=== PATIENT | female | born 1945 | race Caucasian/White ===

== ENCOUNTER 2018-05-15 11:32 | Inpatient (IN) ==
[2018-05-15] MEDS ORDERED: PROTONIX IV ONE (12:25)
[2018-05-15] MEDS ORDERED: PEPCID IV ONE (12:25)
[2018-05-15] MEDS ORDERED: NS 1,000 ML IV ONE (12:25)
[2018-05-15] MEDS ORDERED: SODIUM CHLORIDE 0.9% INJ ONE ×2 (12:26)
[2018-05-15 13:27] LABS: BASO# 0.01 X1000 (0.0-0.2); BASO% 0.1 % (0.0-0.8); HEMOGLOBIN 12.9 g/dL (12.0-16.0); IMM GRAN# 0.02 X1000 (0.0-0.04); IMM GRAN% 0.2 % (0.0-0.5); LYMPH# 0.37 X1000 (1.2-3.4); LYMPH% 3.2 % (20.5-51.1); MCH 29.4 PG (27-31); MCHC 32.3 g/dL (33-37); MCV 91.1 FL (81-99); MONO# 0.69 X1000 (0.11-0.59); MPV 11.9 FL (7.4-10.4); NEUT# 10.38 X1000 (1.4-6.5); NEUT% 90.5 % (42.2-75.2); PLT 226 X1000 (130-400); RBC 4.39 XMIL (4.2-5.4); WBC 11.47 X1000 (4.8-10.8)
[2018-05-15 13:42] LABS: AGAP 21; BUN 27 mg/dL (8-22); CALCIUM 8.5 mg/dL (8.8-10.2); CHLORIDE 100 mmol/L (98-107); COSMO 279; CREATININE 0.8 mg/dL (0.5-0.9); ESTIMATED GFR > 60; GLUCOSE 73 mg/dL (70-104); POTASSIUM 4.1 mmol/L (3.5-5.1); SODIUM 138 mmol/L (136-145); TCO2 17 mmol/L (25-35)
--- NOTE | 2018-05-15 16:03 | EKG Report ---
Test Performed on : 05/15/2018 11:48:44 AM Test Reason : ED. No order in [place] Blood Pressure : / mmHG Vent. Rate : 140 BPM Atrial Rate : 150 BPM P-R Int : 000 ms QRS Dur : 086 ms QT Int : 318 ms P-R-T Axes : 000 -23 132 degrees QTc Int : 485 ms Atrial fibrillation. with rapid ventricular response. Inferior infarct , age undetermined Possible Anterior infarct (cited on or before 10-AUG-2017) ST & T wave abnormality, consider lateral ischemia Abnormal ECG When compared with ECG of 11-AUG-2017 06:54, Significant changes have occurred Unconfirmed Result
[2018-05-15] MEDS ORDERED: NS 500 ML IV ONE (16:19)
[2018-05-15] MEDS ORDERED: G.I. COCKTAIL PO ONE (16:20)
[2018-05-15 17:01] LABS: URINE SOURCE CLEAN CATCH
[2018-05-15 17:10] LABS: BILIRUBIN URINE SMALL (NEGATIVE); BLOOD URINE NEGATIVE (NEGATIVE); COLOR YELLOW; GLUCOSE URINE NEGATIVE (NEGATIVE); KETONE URINE 100 mg/dL (NEGATIVE); LEUKOCYTES URINE MODERATE (NEGATIVE); NITRITE URINE NEGATIVE (NEGATIVE); PROTEIN URINE 50 mg/dL (NEGATIVE); SP GRAVITY URINE 1.027; TURBIDITY URINE HAZY (CLEAR); UROBILINOGEN URINE 3 mg/dL (NORMAL)
[2018-05-15 17:12] LABS: UR EPITHELIAL CELLS >10 /HPF (<10); URINE BACTERIA 2+ /HPF; URINE RBC <10 /HPF (<10); URINE WBC 20-40 /HPF (<10)
[2018-05-15] MEDS ORDERED: ROCEPHIN 1 GM in NS 50 ML IV ONE (17:18)
--- NOTE | 2018-05-15 17:27 | Diag Imaging Result Doc PS360 ---
EXAM: FLAT/UPRIGHT ABD/1 VIEW CHEST HISTORY: epigastric pain TECHNIQUE: Flat and upright with chest, four views COMPARISON: 08/10/2017 FINDINGS: The lungs are hyperexpanded. There is a calcified granuloma in the mid left lung. No pneumonia. No cardiomegaly. No free air beneath the diaphragm. No bowel obstruction. There is stool throughout the colon. No organomegaly. Moderate degenerative changes in the lower lumbar spine. IMPRESSION: Mild constipation Electronically signed by Khang Griffin 05/15/2018 5:25 PM
--- NOTE | 2018-05-15 20:13 | HISTORY AND PHYSICAL ---
PRIMARY CARE PROVIDER: Dr. Nayana Pryor. ACCOUNTS PAYABLES CLERK: Dr. Cota. NEUROLOGIST: Dr. Quispe in [place].. CHIEF COMPLAINT: Three syncopal episodes since Tuesday, generalized weakness and no appetite for over 2 weeks. HISTORY OF PRESENT ILLNESS: Ms. Uribe is a 73-year-old female, who carries a past medical history of Parkinson disease, hypertension, hypothyroidism, hypercholesterolemia, glaucoma, paroxysmal atrial fibrillation, hyperlipidemia, who reported for 2 weeks she has had generalized weakness, no appetite, no BM. reports that yesterday she could not stand up, she passed out, and twice today, and over the last 2 weeks any time she would eat, he thought she was going to throw it back up. She does not normally walk with a walker, but she does have one. They did try to get her to walk with a walker, but she was too weak to do that here. Workup in the ED revealed a urinary tract infection. She was also initially in atrial fibrillation with RVR. She was given IV fluids with 2 L, and has appeared converted back, at least rate controlled in the 80s. Her blood pressures have essentially normalized, and she was given Rocephin for her urinary tract infection. She did report an episode of chest pain last week that was in the epigastric region. She described it as just a sharp pain. It was associated with some shortness of breath. It did not radiate anywhere. Nothing made it better or worse. It just went away on its own. She reports she cannot lie flat. She has to sleep sitting up. There have been no fever or chills. Per her , as little as she has been taking in liquids, he felt that she has had some frequent urination. He could not tell if there was any foul odor. She denies any dysuria. She does not recall any dizziness upon standing, but she has felt some heart palpitations over the past couple of days. She will be admitted to [facility]. We will closely watch her on the monitor, and continue with IV antibiotics and IV hydration, as well as consult Physical Therapy. PAST MEDICAL HISTORY: 1. Paroxysmal atrial fibrillation. 2. Parkinson disease. 3. Hypertension. 4. Hypothyroidism. 5. Hypercholesterolemia. 6. Glaucoma. PAST SURGICAL HISTORY: 1. Left knee replacement. 2. Tubal ligation. 3. Hysterectomy. ALLERGIES: Codeine and morphine. REVIEW OF SYSTEMS: A 14 point review of systems was completely negative except for those mentioned in HPI and left knee pain. SOCIAL HISTORY: Patient is . She lives with her . No alcohol, tobacco, or illicit drug use. PHYSICAL EXAMINATION: VITAL SIGNS: Temperature is 98.2 degrees. Initial heart rate was 126, now down to 85. Respirations 21. Blood pressure 117/53. O2 is 98% on room air. GENERAL: Ms. Uribe is a 73-year-old female who appears weak, but in no acute distress. HEENT: Atraumatic, normocephalic. PERRL. NECK: Supple. Trachea midline. CV: S1, S2 appreciated. No murmurs, gallops, or rubs noted. RESPIRATORY: Lung sounds decreased throughout all lung campbell. The patient does not really take any deep breaths, even when asked. ABDOMEN: Soft, nontender. Hypoactive bowel sounds in 4 quadrants. EXTREMITIES: Negative for edema. Bilateral pedal pulses are pounding. No lower extremity edema. No clubbing, no cyanosis. NEUROLOGIC: Patient is awake, alert, and oriented x4. Follows commands. Moves all extremities. DIAGNOSTIC DATA: 1. EKG: Atrial fibrillation with RVR at 140 beats per minute. We are rechecking an EKG to confirm that the patient is back in sinus, or without atrial fibrillation with RVR. 2. Abdominal x-ray: Mild constipation. LABORATORY DATA: White count 11, hemoglobin and hematocrit 12 and 40, platelet count is 226,000. Sodium 138, potassium 4.1, BUN 27, creatinine 0.8, blood glucose of 73. Troponin is less than 0.010. Plasma lactate is 1.1. We will order a stat magnesium. Urinalysis is negative for nitrites, 20 to 40 WBCs, 2+ bacteria. ASSESSMENT AND PLAN: 1. Atrial fibrillation with rapid ventricular response, in a patient with a history of paroxysmal atrial fibrillation and atrial flutter. We will continue her on her home flecainide and Eliquis. Consult Cardiology. Patient has had 3 syncopal episodes since yesterday. We will monitor on telemetry. Recheck an echocardiogram. 2. Urinary tract infection. Will await urine culture results and continue with intravenous Rocephin. 3. Generalized weakness and deconditioning over the past 2 weeks. Unsure if this is from the atrial fibrillation or her urinary tract infection. We will consult Physical Therapy. 4. Mild constipation. We will start her on a bowel regimen. 5. Decreased appetite. We will encourage fluids as well as oral intake. 6. Parkinson disease. We will continue her home medications. 7. Hypothyroidism. We will check a TSH. 8. High cholesterol. Patient is not on a statin. 9. Glaucoma. 10. Question transient ischemic attacks in the past. She reported that her neurologist, Dr. Quispe, states that she has had transient ischemic attacks in the past. We will continue to monitor. 11. Further recommendations to follow physician evaluation, laboratory, and diagnostic data. Dictated by GRAYSON Gardiner for Waqas Cuevas MD cc: MD Rafael Elliott MD Kathy J. Sparacino, MD I agree with most components of history, physical, assessment and plan. MTDD
--- NOTE | 2018-05-15 20:55 | Diag Imaging Result Doc PS360 ---
EXAM: CT HEAD W/O CONTRAST HISTORY: ams weakness TECHNIQUE: CT head without contrast COMPARISON: None. FINDINGS: No parenchymal hemorrhage. No epidural or subdural hematoma. No subarachnoid hemorrhage. There are mild microvascular ischemic changes. No mass identified on this noncontrasted exam. No hydrocephalus. No sinus opacification. IMPRESSION: 1.No hemorrhage 2.Mild microvascular ischemic changes This exam was performed using automated exposure control, adjustment of mA or kV according to patient size, and/or use of iterative reconstruction technique. Electronically signed by Khang Griffin 05/15/2018 8:53 PM
[2018-05-15] MEDS ORDERED: ZOFRAN IV PRN (21:36)
[2018-05-15] MEDS ORDERED: DULCOLAX PR PRN (21:36)
--- NOTE | 2018-05-15 21:48 | HISTORY AND PHYSICAL ---
ADDENDUM: I agree with most components of history, physical, assessment and plan. In brief, Ms Uribe is 73-year-old lady with past medical history of paroxysmal atrial fibrillation, Parkinson disease diagnosed since last 2 years, essential hypertension, who comes in with complaints of progressive functional decline and multiple syncopal episodes. The patient had started developing weakness since about 1 month ago and had started becoming less active. She had seen her neurologist month prior who had performed EEG the result of which is not known to me at the moment. However patient's functional decline progressed so according to patient's family at bedside her outpatient neurologist had recommended increasing the levodopa carbidopa dose. She was initially taking 1 tablet 3 times a day and slowly they had increased the dose to up to 8 tablets daily, which initially helped her but later on it stopped helping her and progressively over last 2 weeks patient has started declining. She had a fall episode about 1 week ago for which an MRI of the brain was performed outside [facility] which did not show any acute abnormality as per the history given to me. Yesterday when patient was trying to go to the bathroom with help after walking about 3 or 4 steps she had passed out. She did not lose consciousness. There was no seizure activity. Today she has had 2 such episodes of passing out. She has had decreased p.o. intake and so patient was brought to the emergency room. In the emergency room she was found to have atrial fibrillation with rapid ventricular rate, pyuria, hypotension and leukocytosis. She was given intravenous fluids and hospitalist team was consulted. At the time of my evaluation patient appears very weak, not in any acute distress currently her heart rhythm on the monitor is normal sinus rhythm, most of the history component is obtained from patient and her at bedside. The patient denies any chest pain currently. However she did have atypical episodes of sharp stabbing chest pain lasting for couple of seconds intermittently over last week. She did not have shortness of breath or cough. She did not have nausea, vomiting, abdominal pain, constipation or diarrhea. She did have intermittent episodes of palpitation once every 3-4 days. She denies hitting her head. She denies any burning or pain while passing urine at the moment. Currently vitals temperature of 98.2, pulse 84, respiratory rate 21, blood pressure 140/60 at the time of my evaluation, 98% on 2 L nasal cannula. PHYSICAL EXAMINATION: She appears in mild distress and appears very weak and tired. Oral cavity is dry. Air entry bilaterally equal. No wheeze, rhonchi, crackles. S1, S2 normal. No murmur, rub, or gallop. ABDOMEN: Soft, scaphoid, nontender. No hepatosplenomegaly. No lower extremity edema. NEUROLOGIC: Pupils bilaterally equal reacting to light. Her visual campbell are grossly normal. Her facial sensations are intact her smile and she is able to raise both eyebrows equally. She is able to protrude the tongue in midline. Extraocular movements are intact. She has good cough reflex. She is able to shrug her shoulders. She had equal sensation bilateral upper and lower extremities on to touch. On motor examination she appears very weak however able to raise both upper extremities above ground level. She is not able to raise both lower extremities above ground level. LABS: Suggestive of leukocytosis, normal blood count, normal electrolytes except elevated BUN and urinalysis suggestive of pyuria and significant epithelial cells suggestive of dehydration. ASSESSMENT AND PLAN: 1. Suspected sepsis likely from urinary tract infection. 2. Clinical volume depletion. 3. Paroxysmal atrial fibrillation with rapid ventricular rate. 4. Suspected orthostatic hypotension due to levodopa carbidopa use. 5. Parkinson disease with gradual very rapid functional decline. 6. Syncope likely in the setting of orthostatic hypotension. 7. Constipation. PLAN: I will start patient on intravenous fluids, intravenous antibiotics for suspected urinary tract infection. I will increase her flecainide dose for paroxysmal atrial fibrillation. In future I may add AV hafsa dolly to her regimen keeping orthostatic hypotension in mind. I will follow up with head CT. She may not need echocardiogram as she had 1 done 6 months ago where the nuclear medicine stress test was also negative. I will consult Neurology for management of Parkinson disease since she has had significant decline over last few weeks. Patient will be admitted to [facility]. Plan of care discussed with the patient and her at bedside. All of the questions have been answered. cc: Waqas Cuevas MD MTDD
[2018-05-15] MEDS: NS 1,000 ML IV SCH (22:12)
[2018-05-15] MEDS: TAMBOCOR PO SCH ×2 (22:12→22:27)
[2018-05-15] MEDS: TYLENOL PO PRN (22:25)
[2018-05-15] MEDS: COLACE PO SCH (22:27)
[2018-05-16] MEDS: PRILOSEC PO SCH (06:09)
[2018-05-16] MEDS: SYNTHROID PO SCH (06:10)
--- NOTE | 2018-05-16 06:28 | Diag Imaging Result Doc PS360 ---
EXAM: KNEE 3 VIEWS LEFT HISTORY: Fall, Left knee pain TECHNIQUE: Left knee, three views COMPARISON: None. FINDINGS: There has been prior orthopedic replacement of the knee. Good alignment to the femoral and tibial components. No fracture. No dislocation. IMPRESSION: No acute bony injury. Electronically signed by Khang Griffin 05/16/2018 6:26 AM
--- NOTE | 2018-05-16 06:33 | Diag Imaging Result Doc PS360 ---
EXAM: CHEST-PORTABLE HISTORY: afib TECHNIQUE: Portable chest single view COMPARISON: 05/15/2018 FINDINGS: The lungs are well expanded. The left hemidiaphragm is elevated. The heart is not enlarged. The vessels are not distended. There are no infiltrates. No effusion identified. IMPRESSION: Negative exam. Electronically signed by Khang Griffin 05/16/2018 6:30 AM
--- NOTE | 2018-05-16 07:21 | EKG Report ---
Test Performed on : 05/16/2018 07:15:36 AM Test Reason : chest pain Blood Pressure : / mmHG Vent. Rate : 075 BPM Atrial Rate : 075 BPM P-R Int : 192 ms QRS Dur : 078 ms QT Int : 422 ms P-R-T Axes : 000 004 009 degrees QTc Int : 471 ms Normal sinus rhythm. Cannot rule out Anterior infarct (cited on or before 10-AUG-2017) Abnormal ECG When compared with ECG of 15-MAY-2018 23:22, (Unconfirmed) Questionable change in initial forces of Septal leads Nonspecific T wave abnormality no longer evident in Lateral leads Unconfirmed Result
--- NOTE | 2018-05-16 07:35 | EKG Report ---
Test Performed on : 05/15/2018 11:22:50 PM Test Reason : reassess afib Blood Pressure : / mmHG Vent. Rate : 083 BPM Atrial Rate : 083 BPM P-R Int : 186 ms QRS Dur : 094 ms QT Int : 408 ms P-R-T Axes : 029 001 029 degrees QTc Int : 479 ms Normal sinus rhythm. Septal infarct (cited on or before 10-AUG-2017) Abnormal ECG When compared with ECG of 15-MAY-2018 11:48, (Unconfirmed) Significant changes have occurred Unconfirmed Result
[2018-05-16] MEDS: ELIQUIS PO SCH ×3 (09:49→23:17)
[2018-05-16] MEDS: SINEMET 25/100 PO SCH ×3 (09:49→23:17)
[2018-05-16] MEDS: COLACE PO SCH ×3 (09:50→23:17)
[2018-05-16] MEDS: TAMBOCOR PO SCH ×3 (09:50→23:17)
[2018-05-16] MEDS: NS 1,000 ML IV SCH (11:10)
[2018-05-16 12:33] LABS: BASO# 0.01 X1000 (0.0-0.2); BASO% 0.1 % (0.0-0.8); HEMATOCRIT 34.9 % (37.0-47.0); HEMOGLOBIN 11.3 g/dL (12.0-16.0); IMM GRAN# 0.02 X1000 (0.0-0.04); IMM GRAN% 0.3 % (0.0-0.5); LYMPH# 0.42 X1000 (1.2-3.4); LYMPH% 6.1 % (20.5-51.1); MCH 29.9 PG (27-31); MCHC 32.4 g/dL (33-37); MCV 92.3 FL (81-99); MONO# 0.69 X1000 (0.11-0.59); MPV 12.1 FL (7.4-10.4); NEUT# 5.75 X1000 (1.4-6.5); NEUT% 83.5 % (42.2-75.2); PLT 181 X1000 (130-400); RBC 3.78 XMIL (4.2-5.4); RDW 14.3 % (11.5-14.5); WBC 6.89 X1000 (4.8-10.8)
--- NOTE | 2018-05-16 12:38 | PROGRESS NOTE ---
DATE: 05/16/2018 INTERVAL HISTORY: Overnight, no acute events. The patient got x-ray of her left knee because of consistent left knee pain, which did not detect any malfunction of prosthesis that she had from her previous arthroplasty. SUBJECTIVE: She continues to feel very weak. She also has very hypophonia and her speech is very slow. The patient's is at bedside. The patient denies nausea, vomiting, or abdominal pain. I will discuss the plan about consulting neurologist and orthopedic doctor today. I answered the patient and her 's questions. I discussed with them about continuing intravenous fluids and antibiotics. VITALS: Temperature 97.9 degrees, pulse 75, respiratory rate 16, blood pressure 137/46, saturating 98% on room air. PHYSICAL EXAMINATION: General: Does not appear in any acute distress. She appears very weak. Oral cavity is dry. Air entry bilaterally equal. No wheeze, rhonchi, crackles. Cardiovascular: S1, S2 normal. No murmur, rub, or gallop. Abdomen: Soft, scaphoid, and nontender. No hepatosplenomegaly. No lower extremity edema. She does have significant effusion of left knee. It is markedly tender on palpation. Range of movement is limited because of tenderness. Neurological Examination: Pupils are bilaterally equal, reacting to light. She is alert. She is engaging in normal conversation at the moment. LABORATORY DATA: No CBC or BMP done today. I reordered them later on for tomorrow. MICROBIOLOGY: Urine culture, blood culture, no growth to date. ASSESSMENT AND PLAN: 1. Sepsis from urinary tract infection, considering leukocytosis and tachycardia. Continue intravenous fluids and intravenous ceftriaxone until culture sensitivity results come back. 2. Left knee effusion with history of arthroplasty and significant left knee pain. I will consult orthopedic doctor's evaluation to see if she needs any arthrocentesis, and culture sensitivity of left knee. Continue acetaminophen as needed for pain at the moment. 3. Paroxysmal atrial fibrillation with rapid ventricular rate. Continue flecainide at higher dose and continue apixaban. In future, she might need additional atrioventricular hafsa blocking agent. However, I would be cautious considering her suspected postural hypotension. 4. Orthostatic hypotension symptom leading to vasovagal syncope. Her levodopa/carbidopa could be contributing to that. Continue intravenous fluid resuscitation. Continue levodopa/carbidopa at a lower than usual dose. 5. Parkinson's disease with progressive rapid functional decline. Her head CT scan did not detect any acute pathology. She did have mild microvascular ischemic changes. I will appreciate neurology recommendation about managing her antiparkinsonian medications. She does not have visible tremors on examination. She has significant bradykinesia. 6. Constipation. I will continue patient on bisacodyl suppository with docusate and encourage her to take intake by mouth. Continue omeprazole. 7. Disposition. I will monitor patient in [facility] for any abnormalities of heart rhythm. Plan of care discussed with the patient. All of her questions have been answered. Patient's is at bedside. His questions have also been answered. Continue Eliquis for paroxysmal atrial fibrillation. cc: Waqas Cuevas MD
--- NOTE | 2018-05-16 12:42 | OPERATIVE NOTE ---
PROCEDURE DATE: 05/16/2018 PREOPERATIVE DIAGNOSIS: Synovitis and effusion, left total knee. POSTOPERATIVE DIAGNOSIS: Synovitis and effusion, left total knee. PROCEDURES: Aspiration of the left knee joint. ANESTHESIA: None. SURGEON: Teresa Beltran MD. PROCEDURE IN DETAIL: This 73-year-old female with an effusion about the left knee which is painful presents for aspiration. Risks and benefits were discussed, and she is willing to proceed. The anterolateral aspect of the supracapsular area was prepped with alcohol. Using sterile technique, an 18-gauge needle was introduced into the knee and aspiration of blood approximately 55 mL obtained. The needle was withdrawn and the area dressed with a 4 x 4 and Kerlix. The aspirate was sent to the laboratory for both Gram stains, as well as aerobic and anaerobic cultures and cell count. She tolerated the procedure well without complication. cc: Davonte Beltran MD
--- NOTE | 2018-05-16 12:52 | CONSULTATION ---
DATE OF CONSULTATION: 05/16/2018 CHIEF COMPLAINT: Dizziness and lightheadedness. HISTORY OF PRESENT ILLNESS: Ms. Uribe is a 73-year-old female who has past medical history of Parkinson's, high blood pressure, hypothyroidism, and hypercholesterolemia. She also reports a history of glaucoma, atrial fibrillation, hyperlipidemia, and generalized weakness. She came to the emergency department for a syncopal episode, and it was found that she was in atrial fibrillation with RVR. She was also found out through her labs that she had a urinary tract infection. She was admitted to the hospital ICU and treated for these conditions, and they noticed that she had some swelling in her knee. She had a knee replacement by Dr. Beltran in 2003. Orthopedics was consulted to see the patient. PAST MEDICAL HISTORY: 1. Atrial fibrillation. 2. Parkinson's disease. 3. Hypertension. 4. Hypothyroidism. 5. Hypercholesterolemia. 6. Glaucoma. PAST SURGICAL HISTORY: 1. Left total knee replacement. 2. Tubal ligation. 3. Hysterectomy. ALLERGIES: She is allergic to codeine and morphine. REVIEW OF SYSTEMS: A 14 point review of systems overall negative, except for those listed in the HPI. SOCIAL HISTORY: Patient is , lives with her . Denies alcohol, tobacco, or drug use. PHYSICAL EXAMINATION: Vital signs: Temperature was 97.9 degrees, pulse rate 75, respiratory rate 16, blood pressure 137/46, oxygen saturation 98% on room air. General: Patient is awake and alert, sitting in the bed, eating her meal. She is in no acute distress. HEENT: Head is atraumatic, normocephalic. PERRLA. Neck: Supple. Trachea midline. Cardiovascular: There is some tachycardia. Respiratory: There is equal chest expansion, rise, and fall. Abdomen: Soft, nontender. Extremities: Left lower extremity: Left knee does have some swelling. There is no redness. There is no warmth. There is good range of motion to the knee. There is tenderness to palpation. Neurologic: Patient is awake, alert, and oriented x4. DIAGNOSTICS: X-ray of the left knee shows good alignment of the knee implant. Laboratory data shows UTI and slightly elevated white count of 11. ASSESSMENT: Left knee swelling with septic urinary tract infection (UTI). PLAN: We plan on obtaining an aspiration of her left knee and sending that off for fluid crystals and cultures. We will see what that shows up and follow the patient while she is in the hospital. We will check on her later. We may need to do an I and D with Poly exchange if it shows bacteria. Dictated by GRAYSON Batista for Davonte Beltran MD cc: GRAYSON Batista MD [facility]
[2018-05-16 12:55] LABS: AGAP 15; ALB/GLOB RATIO 1.4; ALBUMIN 3.3 g/dL (3.5-5.0); ALKALINE PHOSPHATASE 57 U/L (32-104); BUN 19 mg/dL (8-22); CALCIUM 8.6 mg/dL (8.8-10.2); CHLORIDE 104 mmol/L (98-107); COSMO 280; CREATININE 0.5 mg/dL (0.5-0.9); ESTIMATED GFR > 60; GLUCOSE 95 mg/dL (70-104); GOT 6 U/L (10-30); GPT < 5 U/L (10-36); MAGNESIUM 1.7 mg/dL (1.5-2.7); SODIUM 139 mmol/L (136-145); TCO2 20 mmol/L (25-35); TOTAL BILIRUBIN 0.39 mg/dL (0.20-1.00); TOTAL PROTEIN 5.6 g/dL (6.3-8.3)
[2018-05-16 16:26] LABS: BODY FLUID SOURCE SYNOVIAL FLUID; WBC BF 21580 /cumm
[2018-05-16 16:27] LABS: MONOS 4 %; POLYS 96 %
[2018-05-16] MEDS ORDERED: ROCEPHIN 1 GM in NS 50 ML IV SCH (17:00)
[2018-05-16] MEDS ORDERED: VANCOMYCIN IV PER PHARMACY MISC SCH (19:15)
--- NOTE | 2018-05-16 19:44 | CONSULTATION ---
DATE OF CONSULTATION: 05/16/2018 REASON FOR CONSULT: Parkinsons and orthostatic hypotension. HISTORY OF PRESENT ILLNESS: This is a 73-year-old right-handed female with diagnosed idiopathic Parkinson disease 2 years ago, who was admitted with general decline over the last couple of weeks. History is from the attentive family. The patient was diagnosed with Parkinson disease 2 years ago. At that time she had presented with some gait shuffling, and I believe some tremor occasionally on the left. She was started on Sinemet 1 tablet 3 times daily and noted significant improvement within approximately 1/2 hour or so of taking the medication, and significant improvement of her gait. She continued on that dose until 04/21 of this year, when the dose began to increase on a schedule with a planned end dose of 2 tablets 4 times daily. She did not actually get up to that dose and ended closer to approximately 6 tablets total in a day. was having a difficult time even providing that dosage due to drowsiness and overall decline as well as hallucinations. The family agrees there has been benefit with Sinemet with initial increase, but she has had hallucinations and then also a gradual decline recently. About 2 weeks ago she stopped sleeping for about 3 days, followed by sleeping excessively for 3 days. In the last 12 days before admission she stopped eating altogether. She had 3 syncopal episodes, one on Tuesday and 2 yesterday, both associated with positional change. That is new for her. There is some discrepancy with family history in terms of hallucinations. The patient's children state that the patient began complaining of visual hallucinations just after she started taking Sinemet 2 years ago, and that they have worsened with the increase in dosage recently. wonders if she had hallucinations 2 years ago prior to being evaluated for Parkinson disease. She has had some tremor in her left foot and left hand more than the right. It comes and goes. It is when she is resting. She also has tremor around the mouth. She had not been on antipsychotics prior to her Parkinson diagnosis, though she was started on one for some time which was recently discontinued due to cost. I believe she was started on quetiapine in its place. While the quetiapine helped some, she seems to have had a return of frightening hallucinations. She came into the emergency room yesterday late morning and had not had Sinemet from that time until this morning when it was restarted at a lower dose of 1 tablet 3 times a day. The family at bedside reports that she seemed a little better with less frequent hallucinations and possibly less tremor. I am uncertain about any gait change or otherwise. She was diagnosed with a urinary tract infection and concern for sepsis and is being treated accordingly. In addition, she was found to have atrial fibrillation and rapid ventricular response in the emergency department. The latter has been improved. She had aspiration of the left knee joint for synovitis and effusion today, with results pending. PAST MEDICAL HISTORY: 1. Parkinson disease, diagnosed 2 years ago[address] with Dr. Johnston in [place]. 2. Atrial fibrillation. 3. Hypertension. 4. Hypothyroidism. 5. Hypercholesterolemia. 6. Glaucoma. 7. Left knee replacement. SOCIAL HISTORY: She is and lives with her . No alcohol, tobacco or illicit. She has children who are at bedside. FAMILY HISTORY: Noncontributory. ALLERGIES: Listed to codeine and morphine. CURRENT MEDICATIONS: Sinemet 25/100 one tablet q.8 hours. She also takes flecainide and Eliquis, and I believe she may have been recently been taking Seroquel at night, but I am not certain about that. REVIEW OF SYSTEMS: Balance of 12 was conducted and is otherwise negative except that detailed in the HPI. PHYSICAL EXAMINATION: Vital signs: Afebrile. Blood pressure 99/58 on admission, current 129/44. Pulse 70s to 80s. Respirations 16, 95% on room air. Ms. Uribe is supine in bed. She is awake, alert and reasonably attentive. She is slow to answer questions, however. She is oriented to self, family and location. She follows some simple commands. She has hypophonia and diminished facial expression. Intermittently I see perioral quivering. No language disturbance. Pupils are equal, round and sluggishly reactive to bright light. Gaze is conjugate and forward. Ocular movements are full, though with the exception of limited upgaze bilaterally. Downgaze is good. Visual campbell are intact to direct confrontational testing. Face symmetric with minimal movement but appears symmetric. Tongue is midline. Palate elevates symmetrically. Strength appears to be grossly symmetric in the arms and legs, with the exception of the left lower extremity, which I believe is limited by pain and recent knee aspiration. Reflexes are absent at the ankles. No clonus. Plantar response with excessive withdrawal, 1+ at the wrists. I do not see tremor of the extremities during my time at the bedside. There is some mild cogwheeling on the left upper extremity. I did not see this on the right. I did not test her gait due to the recent knee aspiration. Rapid alternating movements are slowed bilaterally, worse on the left. DIAGNOSTIC DATA: Head CT noncontrast showing no acute findings. There are mild microvascular ischemic changes. LABORATORY DATA: Normal white count today. Normal sodium, BUN and creatinine. BUN was 27 on admission. Blood sugar is normal. AST and ALT are not elevated. She has urine suspicious for a UTI. Cultures are pending. ASSESSMENT AND PLAN: 1. Presumed idiopathic Parkinson disease. The family seems consistent in reporting notable improvement when Sinemet was started as well as improvement with initial dose increase and development of more rapid wearing off of the medication. There are some inconsistencies regarding hallucinations and whether or not those were present prior to Sinemet versus had developed subsequent to that. Sinemet dose was recently increased, though she did not really tolerate a dose of 6 total tablets daily. I think it is reasonable to continue the lower dose back at 1 tablet 3 times daily as you are doing. Once acute medical issues have resolved, we could potentially slowly increase the dose some, but to a lesser degree, and see if she tolerates that and has improvement. 2. Syncopal events in the setting of positional change. This has occurred in the setting of several factors including urinary tract infection, loss of appetite and p.o. intake, and increase in Sinemet dosage. PD can also cause orthostasis. She is also on flecainide, though, I did not hear of a recent dose change. Agree with treating her urinary tract infection and possible sepsis as you are doing. Again, we can attempt to slowly increase Sinemet if needed in the future, and that could be done either with Dr. Johnston, or if she prefers that could be done locally as an outpatient. Thank you for the consultation. cc: Leni Jameson MD [facility]
[2018-05-16] MEDS ORDERED: VANCOMYCIN 1,200 MG in NS 250 ML IV ONE (20:00)
[2018-05-17] MEDS: SINEMET 25/100 PO SCH ×3 (02:12→16:47)
[2018-05-17] MEDS: NS 1,000 ML IV SCH ×2 (03:02→15:46)
[2018-05-17 05:35] LABS: BASO# 0.01 X1000 (0.0-0.2); BASO% 0.2 % (0.0-0.8); EOS# 0.01 X1000 (0.0-0.7); EOS% 0.2 % (0.0-10.0); HEMATOCRIT 31.8 % (37.0-47.0); HEMOGLOBIN 10.3 g/dL (12.0-16.0); LYMPH# 0.95 X1000 (1.2-3.4); MCH 29.9 PG (27-31); MCHC 32.4 g/dL (33-37); MCV 92.2 FL (81-99); MONO# 0.65 X1000 (0.11-0.59); MONO% 10.9 % (1.7-9.3); MPV 12.6 FL (7.4-10.4); NEUT# 4.32 X1000 (1.4-6.5); NEUT% 72.7 % (42.2-75.2); PLT 167 X1000 (130-400); RBC 3.45 XMIL (4.2-5.4); RDW 14.2 % (11.5-14.5); WBC 5.94 X1000 (4.8-10.8)
[2018-05-17 05:53] LABS: AGAP 12; BUN 13 mg/dL (8-22); CHLORIDE 107 mmol/L (98-107); COSMO 281; CREATININE 0.5 mg/dL (0.5-0.9); ESTIMATED GFR > 60; GLUCOSE 94 mg/dL (70-104); MAGNESIUM 1.7 mg/dL (1.5-2.7); PHOSPHORUS 1.9 mg/dL (2.7-4.5); POTASSIUM 3.2 mmol/L (3.5-5.1); SODIUM 141 mmol/L (136-145); TCO2 22 mmol/L (25-35)
--- NOTE | 2018-05-17 07:28 | PROGRESS NOTE ---
DATE: 05/17/2018 Ms. Uribe is seen today status post aspiration of her knee. Review of the Gram stain did show white cells and gram-positive cocci. Her aspirate was predominantly blood and not purulent at all. I am questioning whether or not this may be a contaminant as there may have been a break in technique on aspiration. Nevertheless, she does feel better. There is decreased swelling about the knee. There is really absolutely no redness or streaking that would indicate a significant staph infection. We will plan on possibly washing out her knee tomorrow if the cultures continued to indicate an ongoing infection. If she has dramatic improvement, it is felt that this is a contaminant, and we will cancel plans to debride and irrigate the knee. Otherwise, we will consider tomorrow depending on the events of the day and the cultures, possibly washing out the knee surgically tomorrow and placing a drain in. I would certainly continue IV antibiotics for sepsis. We will be following along. cc: Davonte Beltran MD
[2018-05-17] MEDS: SYNTHROID PO SCH (08:46)
[2018-05-17] MEDS: COLACE PO SCH ×3 (08:46→20:03)
[2018-05-17] MEDS: PRILOSEC PO SCH (08:46)
[2018-05-17] MEDS: TAMBOCOR PO SCH ×3 (08:46→20:03)
[2018-05-17] MEDS: ELIQUIS PO SCH ×2 (08:46→19:18)
--- NOTE | 2018-05-17 09:17 | ECHO REPORT ---
ORDER DATE: 05/16/2018 MEASUREMENTS: 1. Left atrium 3.3. 2. Aortic root 3.0. SUMMARY: 1. Technically difficult study due to limited acoustic window quality. 2. Very mild sclerosis of the aortic valve demonstrated with adequate aortic valve opening evident. Peak gradient across the aortic valve is approximately 10 mmHg. Mitral and tricuspid valves are without evidence of structural abnormality while pulmonic valves are not well demonstrated. There is mild mitral regurgitation. Mild tricuspid regurgitation. The estimated systolic PA pressure by Doppler is 45 mmHg suggesting mild pulmonary hypertension. Aortic root is normal size. 3. Normal left ventricular dimensions suggested on 2-dimensional images. Estimated left ventricular ejection fraction appears to be at least 65%. No regional wall motion abnormalities evident. Doppler suggests grade 1 left ventricular diastolic dysfunction. Left atrium, right atrium, right ventricle are normal in size with grossly preserved right ventricular systolic function. 4. No pericardial effusion. 5. Appearance of inferior vena cava suggests normal central venous pressure. cc: MD Waqas Escalante MD
--- NOTE | 2018-05-17 10:49 | INFECTIOUS DISEASE CONSULT REP ---
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 The Gram stain shows that gram-positive cocci are present. The culture is pending. RECOMMENDATIONS: Pending culture results. The patient currently is on vancomycin. She does have problems with ataxia. Therefore, I am going to discontinue vancomycin and instead I will be treating the patient with daptomycin. I think for now we can stop the Rocephin. DISCUSSION: The patient has Parkinson's disease and at times it is hard for her to give much of a history, so a lot of what I learned has come from the , although the patient did answer some questions herself. The patient was initially admitted to the hospital with atrial fibrillation, urinary tract infection, and swelling of the left knee. She also in the past 2 to 3 weeks has been anorectic. Her studies thus far show a CBC, initially, the white count was 11,740, now the white count is 5940. The hemoglobin is 10.3 and the platelet count is 167,000. Creatinine is 0.5, GFR is greater than 60. Liver function studies are normal. Urinalysis showed white cells and bacteria. Synovial fluid white blood cell count was 21,580 with 96% of the white cells being polymorphic nuclear. Blood and urine cultures thus far are negative. The patient fluid from the left knee shows gram-positive cocci. The white blood cell count on the fluid was 21,580 with 96% being polymorphonuclears. The determination of whether crystals are present or not has not been done yet. The patient is on Eliquis and when the patient had arthrocentesis, it was noted that the fluid obtained was sanguinous in nature. PAST MEDICAL HISTORY/REVIEW OF SYSTEMS: Eyes and ears: Patient has decreased vision. Her hearing is okay, but she is ataxic. Neck: No stiffness. Respiratory: No cough or shortness of breath. Cardiac: No chest pain or palpitations. GI: As mentioned above, the patient is anorectic for the past 2 to 3 weeks. She has not had diarrhea and she has hardly passed any stool at all. Genitourinary: The patient says in the past 2-3 days she had dysuria, although as mentioned above, the urine culture is negative. The patient normally according to the has episodes of diarrhea, and then constipation. Integument: No rash. Neurologic: The patient has ataxia due to her parkinsonism. 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 She has had a hysterectomy. PREVIOUS HOSPITALIZATIONS AND OPERATIONS: The patient has had labor and deliveries, a hysterectomy, a left total knee arthroplasty and an appendectomy. MEDICAL DISEASES: Positive for osteoarthritis, melanoma, Parkinson's disease, episodes of constipation and then diarrhea occurs. INFECTIOUS DISEASE HISTORY: Positive for UTI. Negative for pneumonia. FAMILY HISTORY: Positive for diabetes mellitus, hypertension, myocardial infarction, and cancer. SOCIAL HISTORY: [place] She is . She does not smoke cigarettes, drink alcoholic beverages or abuse drugs. HOME MEDICATIONS: Eliquis, Sinemet, Tambocor, and Synthroid. HEIGHT/WEIGHT: The patient is 5 feet 3 inches tall, weighs 106 pounds. PHYSICAL EXAMINATION: Vitals: Temperature is 98.1 degrees, pulse 76, respirations 15, blood pressure 139/50. General: This is a ill-appearing elderly female. She talks in a very soft voice. She is in no acute distress. Head, eyes, ears, nose and throat: No drainage noted from the nose or ears. She does not have any white patches on her tongue. She can hear my spoken words and see near objects. Neck: No pain with movement. Lungs: Clear to auscultation. Cardiovascular: Heart rate is regular. Abdomen: Soft and nontender. Neurologic: The patient is awake. She can move her extremities. There is no tremor. The did tell me that she is ataxic. Integument: No rash noted. Thank you for the consult. cc: Bharat Cochran MD
[2018-05-17] MEDS: CUBICIN 300 MG in NS 100 ML IV SCH (10:57)
--- NOTE | 2018-05-17 11:04 | PROGRESS NOTE ---
DATE: 05/17/2018 Ms. Uribe has longstanding parkinsonism with features typical of idiopathic Parkinson's disease. She has had recent increased postural lightheadedness. Her Sinemet dose has been increased in recent weeks. Dr. Jameson saw her earlier for initial neurology evaluation. Workup this admission includes echocardiogram with no mention of source of embolus. Current medication list shows carbidopa/levodopa 25/100 reduced to one tablet t.i.d. and that dose is apparently well tolerated. On exam now, she is awake, alert, attentive, and oriented. Speech is not markedly parkinsonian. She does not have resting tremor. There is minimal cogwheeling in the arms. Tone is not significantly increased. She did well on [id number] testing bilaterally. Glabellar sign is absent. I did not test her gait. IMPRESSION: 1. Parkinsonism, probably idiopathic Parkinson's disease. 2. Postural lightheadedness. PLAN: We discussed the postural hypotension as a common problem with Parkinson's disease which can be aggravated with dopaminergic medicines. She seems to be stable now with reduced Sinemet 25/100 t.i.d. We will continue that dose short-term. Longer term, I hope she can remain stable until she can return to see her treating neurologist, Dr. Johnston, in [place], with next appointment in about a month. Thanks for asking us to see Ms. Uribe. cc: MD KYLER Arnold III
[2018-05-17] MEDS: KLOR-CON PO SCH ×3 (16:47→20:02)
--- NOTE | 2018-05-17 18:30 | PROGRESS NOTE ---
DATE: 05/17/2018 INTERVAL HISTORY: No acute events overnight. She was able to work with physical therapy and go out of her room and come back. She, however, has not been eating and she states that she has not had any appetite. Currently the patient's relatives are in the room. Plan of care was discussed with them. I encouraged the patient to eat by mouth. I informed them about negative urine culture results. So far negative synovial fluid culture and I answered all of their questions currently. OBJECTIVE: Vital signs: Temperature of 97.8 degrees, pulse 79, respiratory rate 15, blood pressure 150/60, saturating 99% on room air. General: She does not appear in any acute distress. HEENT: Oral cavity is dry. Lungs: Air entry bilaterally equal. No wheeze, rhonchi, crackles. Cardiovascular: S1, S2 normal. No murmur, rub, or gallop. Abdomen: Soft, scaphoid, nontender. No hepatosplenomegaly. Extremities: No lower extremity edema. Her left knee is in a bandage. However, she told me that the swelling has significantly gone down and her pain has significantly reduced. Neurological: She is alert and oriented x3. She has hypophonia. She has resting tremors affecting bilateral lower extremities. She wants to go home and she is feeling terrible being in the hospital. LABS: Suggestive of normocytic anemia with hemoglobin of 10.3. Normal platelet count. Hypokalemia which is being repleted. Improvement in carbon dioxide and BUN. Hypophosphatemia which is being repleted as well. Synovial fluid analysis had suggested WBC of 21,000 which was polymorphonuclear. Though the Gram stain of synovial fluid did have some gram- positive cocci, the culture has been negative so far. Urine culture had mixed lamont. ASSESSMENT AND PLAN: 1. Suspected sepsis on presentation from urinary tract infection considering leukocytosis and tachycardia or from infected left knee arthroplasty. Continue intravenous fluids as the patient has not been eating by mouth. Her antibiotics have been changed to intravenous daptomycin for suspected left knee arthroplasty infection. Her urine culture was negative and intravenous ceftriaxone has been stopped. According to orthopedic, the synovial fluid might be blood mixed and that might be the reason why she had gram- positive cocci in the fluid. However, I will await final culture results and accordingly, after discussion with ID discontinue intravenous daptomycin. 2. Paroxysmal atrial fibrillation with rapid ventricular rate on presentation. Continue flecainide at higher dose and apixaban. She has not had such episodes after . I would consider adding beta-dolly if she develops rapid ventricular rate again. However, considering orthostatic hypotension, I will be cautious as well. 3. Orthostatic hypotension symptoms leading to vasovagal syncope multiple times prior to presentation. Her history of Parkinson disease and levodopa carbidopa could be contributing factors. Continue intravenous fluids. Follow up orthostatic vitals, which I placed another order to get as she does not have any documented orthostatic vitals. 4. Parkinson disease with progressive rapid functional decline. Head CT on admission did not have acute pathology except microvascular ischemic changes. She is currently on carbidopa levodopa only 3 times a day. It was thought that as on presentation she was taking carbidopa levodopa up to 8 times a day that might have contributed to her significant postural hypotension and syncopal episode. Neurology on board and agrees with the current dosing. 5. Constipation. Continue bisacodyl suppository and docusate and I will add lactulose since she has not have any bowel movement so far. 6. Disposition. Patient remains inside the hospital as we await final synovial fluid culture analysis. Depending on that, disposition will be decided. The patient would likely be a candidate of going home with home physical therapy as today she has expressed her wishes of going home. She really needs to eat and she could potentially be a rehab candidate as well. I would follow up with the discussion with patient tomorrow. Plan of care discussed with the patient and her family members at bedside. cc: Waqas Cuevas MD [facility]
[2018-05-17] MEDS: K-PHOS PO SCH ×2 (19:19→20:03)
[2018-05-17] MEDS: LACTULOSE PO SCH ×2 (19:19→20:03)
[2018-05-17] MEDS: DULCOLAX PR SCH ×2 (19:20→20:03)
[2018-05-18] MEDS: SINEMET 25/100 PO SCH ×3 (00:31→17:12)
[2018-05-18] MEDS: PRILOSEC PO SCH ×2 (05:35→06:02)
[2018-05-18] MEDS: SYNTHROID PO SCH ×2 (05:35→06:02)
[2018-05-18] MEDS: NS 1,000 ML IV SCH (05:35)
--- NOTE | 2018-05-18 07:39 | INFECTIOUS DISEASE PROGRESS NO ---
DATE: 05/18/2018 PRESENT ILLNESS: The patient appears to have an infected left total knee arthroplasty. The patient may have a urinary tract infection. The culture gave a mixed growth. The patient's blood cultures also are sterile. MEDICATIONS: The patient is receiving daptomycin as a single agent. PHYSICAL EXAMINATION: Vital Signs: Temperature is 97.8 degrees, pulse 71, respirations 16, blood pressure 138/51. General: This is a somewhat ill-appearing, elderly female. She is in no acute distress. Head, Eyes, Ears, Nose, and Throat: She can hear my spoken words and see near objects. She does not have any white coating of her tongue. Neck: No pain with movement. Lungs: Clear to auscultation. Cardiovascular: Heart rate is regular. Abdomen: Soft and nontender. Extremities: The left knee is swollen again and appears to be fluctuant. Neurologic: The patient is awake. She talks in a very soft voice. She can move her extremities. There is no tremor. LAB AND X-RAY: The patient's knee culture and blood cultures so far are sterile. Urine culture, as mentioned above, shows a mixed growth. The synovial fluid from the patient's knee did not show crystals. ASSESSMENT AND PLAN: It appears to me that the patient does have an infected total left knee arthroplasty. I agree with Dr. Beltran's decision to take the patient to surgery for her presumed total knee arthroplasty infection. For now, I am not going to order a peripherally inserted central catheter until we see the final culture results of the knee and its identification. There is no new CBC or BMP for today. COMORBIDITIES: The patient has osteoarthritis and Parkinson's disease. cc: Bharat Cochran MD
[2018-05-18] MEDS ORDERED: VANCOMYCIN 1 GM/NS 1 GM/250 ML IVPB IV SCH (08:00)
[2018-05-18] MEDS: TAMBOCOR PO SCH ×2 (09:18→23:06)
[2018-05-18] MEDS: COLACE PO SCH ×2 (09:18→23:12)
[2018-05-18] MEDS: K-PHOS PO SCH ×2 (09:18→23:13)
[2018-05-18] MEDS: LACTULOSE PO SCH ×2 (09:18→23:13)
[2018-05-18] MEDS: CUBICIN 300 MG in NS 100 ML IV SCH (09:25)
--- NOTE | 2018-05-18 10:09 | PROGRESS NOTE ---
DATE: 05/18/2018 Ms. Uribe is awake, alert, attentive. She is calm. There is no tremulousness, tremor, rigidity right now. Her facial expression is little bit improved compared to yesterday. Voice is strong. No new thoughts or new suggestions from Neurology standpoint today. Would continue current Sinemet 25/100 t.i.d. and follow clinically. Thanks for asking Neurology to see Ms. Uribe. cc: Ken Aaron III, MD
[2018-05-18] MEDS ORDERED: DIPRIVAN 1% ONE (10:51)
[2018-05-18] MEDS ORDERED: FENTANYL ONE (10:51)
[2018-05-18] MEDS ORDERED: ZOFRAN ONE (10:51)
[2018-05-18] MEDS ORDERED: XYLOCAINE-MPF 2% ONE (10:51)
[2018-05-18] MEDS ORDERED: TOBRAMYCIN IV PER PHARMACY MISC SCH (11:00)
[2018-05-18] MEDS ORDERED: TOBRAMYCIN POWDER MISC SCH (11:00)
[2018-05-18] MEDS ORDERED: NEOSPORIN G.U. IRRIGANT ONE (11:02)
[2018-05-18] MEDS ORDERED: VANCOMYCIN ONE (11:08)
--- NOTE | 2018-05-18 13:31 | OPERATIVE NOTE ---
PROCEDURE DATE: 05/18/2018 PREOPERATIVE DIAGNOSIS: Infected left total knee. POSTOPERATIVE DIAGNOSIS: Infected left total knee. PROCEDURE: Debridement, irrigation, and placement of antibiotic beads and drain, left total knee. SURGEON: Teresa Beltran MD STOCKROOM HELPER: GRAYSON Batista ANESTHESIA: General. COMPLICATION: None. PROCEDURE IN DETAIL: This 73-year-old female with gram-positive cocci on her Gram stain of the left total knee presents for surgical debridement and irrigation of the left knee. Risks, benefits, and no guarantees were discussed, and she is willing to proceed. She was taken to the operating room and satisfactory anesthesia obtained. The left leg was prepped and draped in the usual sterile fashion. A time-out was taken to confirm operative site, procedure, and patient. The leg was wrapped with an Esmarch and tourniquet inflated to 300 mmHg. The previous anterior incision was utilized from the superior pole of the patella down along the infrapatellar tendon and a medial arthrotomy created. A hemarthrosis was noted upon entering the joint. Cultures were taken for aerobic and anaerobic cultures. No ernesto pus was noted. There was roughly 60-70 mL of hemarthrosis. Three liters of irrigation was then run through the joint. The joint surfaces were inspected and the femoral component and tibial tray noted to be fully secure. There was no polyethylene wear on the tibial bearing or patellar implant. All components appeared to be in good order and well fixated with minimal wear. The joint was irrigated with 3 L of irrigant and followed by 1 L Bactisure and then an additional 3 L of irrigant. A Hemovac drain was placed and brought out through the anterolateral retinaculum. The joint capsule was then covered with antibiotic tobramycin base beads, which were dissolvable. The joint capsule was then repaired over the drain and the beads using #1 Vicryl in the arthrotomy, 2- 0 Vicryl in the subcutaneous, and skin hilary on the skin edges. Sterile dressings completed the closure and the patient was recovered from anesthesia and transferred to the recovery room in stable condition. No intraoperative complications were noted. Instrument count and sponge count were correct at the time of closure. Tourniquet was released with good return of capillary refill. She was transferred to the recovery room in stable condition. cc: Davonte Beltran MD [facility]
[2018-05-18] MEDS: DILAUDID IV PRN (14:44)
[2018-05-18] MEDS ORDERED: TOBRAMYCIN POWDER MISC ONE (14:45)
[2018-05-18] MEDS ORDERED: ZOFRAN ODT PO PRN (15:15)
[2018-05-18] MEDS ORDERED: ZOFRAN IV PRN (15:15)
[2018-05-18] MEDS ORDERED: DILAUDID IV PRN (15:15)
[2018-05-18] MEDS ORDERED: OXY IR PO PRN ×2 (15:15)
[2018-05-18] MEDS ORDERED: POTASSIUM PHOSPHATE 40 MEQ in NS 250 ML IV ONE (15:42)
[2018-05-18] MEDS ORDERED: TYLENOL PO SCH (16:00)
--- NOTE | 2018-05-18 16:08 | PROGRESS NOTE ---
DATE: 05/18/2018 SUBJECTIVE: She is confused after surgery today claiming that she is very concerned about a storm, a winter storm, and that people are not going to be safe. She is fairly disoriented. OBJECTIVE: Vital Signs: Blood pressure is 144/59, heart rate 73, respiratory rate of 14 and temperature 97.5 degrees. Cardiovascular: Regular rate and rhythm. Pulmonary: Bilateral breath sounds. Clear to auscultation. GI: Soft, nontender, nondistended. Bowel sounds are positive. LABORATORY DATA: White count is 5, hemoglobin and hematocrit 10 and 31, platelets 167. Potassium 3.2. Magnesium of 1.9. PROBLEM LIST: 1. Left knee arthritis with concern over septic arthritis. She has undergone an incision and drainage today per Dr. Beltran with debridement and antibiotic placement. We will continue antibiotics per Infectious Disease recommendation. So far, the cultures have not grown anything specifically. The patient is currently on daptomycin per Dr. Cochran. 2. Atrial fibrillation. We will continue treatment. Currently on medications for that. 3. Parkinsonism with dementia. Per the , she has chronic hallucinations. This is not a new issue. She has been on Sinemet, and I think she has been on an Aricept and Namenda combination, which apparently did nothing. I guess there is concern over starting any antipsychotics because of concern over worsening her dementia, but I think this will need to be looked at while she is here. DISPOSITION: I anticipate she will need physical therapy and rehab. They have been consulted and we will get their opinion about placement. I think she is probably safe to go to the floor or surgical after stabilization. cc: Ron Candelaria MD
[2018-05-18] MEDS: ULTRAM PO SCH ×2 (17:12→23:05)
[2018-05-18] MEDS: CELEBREX PO SCH (23:05)
[2018-05-18] MEDS: SEROQUEL PO SCH (23:05)
[2018-05-18] MEDS: DULCOLAX PR SCH (23:12)
[2018-05-19] MEDS: SINEMET 25/100 PO SCH ×3 (00:28→17:25)
[2018-05-19] MEDS: NS 1,000 ML IV SCH ×2 (01:30→17:19)
[2018-05-19 05:51] LABS: BASO# 0.01 X1000 (0.0-0.2); BASO% 0.2 % (0.0-0.8); EOS# 0.04 X1000 (0.0-0.7); EOS% 0.7 % (0.0-10.0); HEMATOCRIT 32.9 % (37.0-47.0); HEMOGLOBIN 10.7 g/dL (12.0-16.0); LYMPH% 16.4 % (20.5-51.1); MCH 30.1 PG (27-31); MCHC 32.5 g/dL (33-37); MCV 92.7 FL (81-99); MONO# 0.66 X1000 (0.11-0.59); MONO% 10.8 % (1.7-9.3); MPV 12.2 FL (7.4-10.4); NEUT# 4.38 X1000 (1.4-6.5); NEUT% 71.9 % (42.2-75.2); PLT 196 X1000 (130-400); RBC 3.55 XMIL (4.2-5.4); RDW 14.1 % (11.5-14.5); WBC 6.09 X1000 (4.8-10.8)
[2018-05-19] MEDS: ULTRAM PO SCH ×4 (06:11→21:34)
[2018-05-19 06:31] LABS: AGAP 12; BUN 5 mg/dL (8-22); CALCIUM 8.1 mg/dL (8.8-10.2); CHLORIDE 100 mmol/L (98-107); COSMO 268; CREATININE 0.5 mg/dL (0.5-0.9); ESTIMATED GFR > 60; GLUCOSE 78 mg/dL (70-104); MAGNESIUM 1.5 mg/dL (1.5-2.7); PHOSPHORUS 4.4 mg/dL (2.7-4.5); POTASSIUM 4.2 mmol/L (3.5-5.1); SODIUM 136 mmol/L (136-145); TCO2 24 mmol/L (25-35)
[2018-05-19] MEDS: TAMBOCOR PO SCH ×2 (09:08→21:34)
[2018-05-19] MEDS: LACTULOSE PO SCH ×3 (09:08→21:33)
[2018-05-19] MEDS: K-PHOS PO SCH (09:08)
[2018-05-19] MEDS: CUBICIN 300 MG in NS 100 ML IV SCH (09:08)
[2018-05-19] MEDS: COLACE PO SCH ×2 (09:09→21:33)
[2018-05-19] MEDS: CELEBREX PO SCH ×2 (09:13→21:34)
[2018-05-19] MEDS: PRILOSEC PO SCH (09:13)
[2018-05-19] MEDS: SYNTHROID PO SCH (09:13)
[2018-05-19 09:17] LABS: INR 1.06; PROTIME 14.7 Seconds (11.0-16.0)
--- NOTE | 2018-05-19 09:44 | INFECTIOUS DISEASE PROGRESS NO ---
DATE: 05/19/2018 PRESENT ILLNESS: The patient appears to have an infected left total knee arthroplasty with gram- positive cocci. The patient may have a urinary tract infection in view of the culture which showed a mixed growth. MEDICATIONS: The patient is receiving daptomycin as a single agent. PHYSICAL EXAMINATION: Vital Signs: Temperature is 98.3 degrees, pulse 80, respirations 16, blood pressure 133/55. General: This is a somewhat ill-appearing elderly female. She is in no acute distress. Head eyes, ears, nose and throat: The patient talks in a very soft voice. She does not have any white coating on her tongue. There is no drainage from the nose or ears. Neck: No pain with movement. Lungs: Clear to auscultation. Cardiovascular: Regular heart rate. Abdomen: Soft and nontender. Extremities: The patient has a large dressing on the knee. The dressing is intact. Neurologic: The patient is awake. She can move her extremities. There is no tremor. LAB AND X-RAY: There is no new lab or x-ray, and thus far all the cultures taken from the knee are not growing anything. ASSESSMENT AND PLAN: I think the knee is infected because gram-positive cocci were seen in the aspirate from the knee on Gram stain. I discussed with the patient and her about long- term intravenous access, and we are going to go and have a PICC placed at this time. For right now, it is uncertain if the patient will be going home or to rehabilitation, and will she be discharged soon or a few days later. I plan to continue the daptomycin, and I have ordered a complete blood count and basic metabolic panel for the beginning of next week. COMORBIDITIES: The patient's comorbidities reveals she has osteoarthritis, which was the reason that she had to have her knee replaced. The patient also has Parkinson disease. cc: Bharat Cochran MD
[2018-05-19] MEDS ORDERED: NS 250 ML ONE (10:06)
[2018-05-19] MEDS: DILAUDID IV PRN (11:56)
--- NOTE | 2018-05-19 12:52 | PROGRESS NOTE ---
DATE: 05/19/2018 SUBJECTIVE: Patient has no major complaints. She is still confused. She is very tearful, still very agitated. states she has been on Seroquel before. She has slept through the night though on the Seroquel, and then was able to wake up this morning. She has been over-sedated in the past on it. OBJECTIVE: Blood pressure 137/57, heart rate 78, respiratory rate 19, temperature 98.8 degrees and 96% on room air.Cardiovascular: Regular rate and rhythm. Pulmonary: Bilateral breath sounds clear to auscultation. GI: Soft, nontender, and nondistended. Bowel sounds are positive. LABORATORY DATA: Her white count 6, hemoglobin and hematocrit 10 and 32, platelets of 196,000. Basic was normal. PROBLEM LIST: 1. Left knee septic arthritis, although cultures thus far are negative, but she is on daptomycin. Infectious Disease is following. She is status post I D and lavage. 2. Atrial fibrillation appears to be stable on her current medications. They have held her Eliquis. I think we probably can use those. Resume that just because of DVT concerns if okay with orthopedics. 3. Parkinsonism and dementia. She seems to be doing okay. Apparently, she has started the Seroquel as an outpatient. He said she slept 15 hours straight before. She has not been quite tolerant of it. However, she seems to be doing okay here although still having some confusion. DISPOSITION: We are looking at rehab options. I do not have, but I think probably ready soon. We will follow. cc: Ron Candelaria MD
--- NOTE | 2018-05-19 18:12 | PROGRESS NOTE ---
DATE: 05/19/2018 Ms. Uribe reports no energy, but she has no specific complaints. Her parkinsonism is not prominent at the time of my visit. There is not rigidity, cogwheeling, or resting tremor. There is a paucity of facial expression. Voice is strong. No new suggestions. I would continue Sinemet 25/100 t.i.d. as she has now, and plan neurology follow-up as an outpatient. cc: Ken Aaron III, MD
[2018-05-19] MEDS: DULCOLAX PR SCH (21:34)
[2018-05-19] MEDS: SEROQUEL PO SCH (21:34)
[2018-05-19] MEDS: ELIQUIS PO SCH (21:34)
[2018-05-20] MEDS: SINEMET 25/100 PO SCH ×3 (00:08→17:03)
[2018-05-20] MEDS: ULTRAM PO SCH ×4 (04:00→21:01)
[2018-05-20] MEDS: NS 1,000 ML IV SCH ×2 (06:00→19:43)
[2018-05-20] MEDS: PRILOSEC PO SCH (06:01)
[2018-05-20] MEDS: SYNTHROID PO SCH (06:01)
[2018-05-20] MEDS: CUBICIN 300 MG in NS 100 ML IV SCH (10:12)
[2018-05-20] MEDS: CELEBREX PO SCH ×2 (10:17→21:01)
[2018-05-20] MEDS: ELIQUIS PO SCH ×2 (10:18→21:02)
[2018-05-20] MEDS: COLACE PO SCH ×2 (10:20→21:04)
[2018-05-20] MEDS: LACTULOSE PO SCH ×2 (10:22→21:04)
[2018-05-20] MEDS: TAMBOCOR PO SCH ×2 (10:23→21:02)
--- NOTE | 2018-05-20 11:32 | PROGRESS NOTE ---
DATE: 05/20/2018 SUBJECTIVE: The patient is a pleasant 73-year-old female, who is 2 days status post incision and drainage, debridement, irrigation, placement of antibiotic beads, left total knee arthroplasty per Dr. Beltran. She is currently resting comfortably. OBJECTIVE: On physical exam, patient is afebrile. Vital signs are stable. Her calf is soft. She has active dorsiflexion, plantar flexion. Dressing is intact. CULTURES: Negative. IMPRESSION: Postoperative day #2 status post irrigation and debridement, placement of antibiotic beads. PLAN: At this point, her drain was discontinued. We will change her dressing. At this point, the patient continues IV antibiotics per Dr. Cochran. She will continue mobilization with physical therapy. All questions were answered. cc: Joel Rose MD
--- NOTE | 2018-05-20 16:11 | PROGRESS NOTE ---
DATE: 05/20/2018 SUBJECTIVE: Patient has no focal complaints. OBJECTIVE: Vital Signs: Blood pressure is 141/55, heart rate is 77, respiratory rate 18, temperature 98.2 degrees. Cardiovascular: Regular rate and rhythm. Pulmonary: Bilateral breath sounds. Clear to auscultation. GI: Soft, nontender, nondistended. Bowel sounds are positive. LABS: White count 6, hemoglobin and hematocrit 10 and 32, platelets 196. Basic was normal. Coagulation normal. PROBLEM LIST: 1. Septic arthritis. Seems to be doing okay. Status post incision, drainage and lavage. Cultures though are all negative, but we are going to treat with intravenous antibiotics. PICC line has already been put in place. Plan is Daptomycin; I think that is what we are going to treat based on the Gram stain, but again culture was negative,, so probably another couple days 2. Parkinsonism with early dementia. She is much better today. The Seroquel I think is helping from my standpoint. It does not seem to be over sedating her. I really think she needs to consider using it as an outpatient. Again, she has used it before and it has been over sedating. She is in a different situation now, but the last 2 days she has been hallucinating and very agitated, crying, that has all resolved now. Her son is there now, so that may also be a change there, but we will see. 3. Atrial fibrillation. She is on Eliquis. Overall seems to be doing okay. DISPOSITION: I initially thought that rehab would be a distinct necessity, but she did fairly well with PT today according to the family; she walked down the [place], she has not asked for a lot of pain medication, so I think she is doing pretty well. I do not have a note from today because the last note said that she only walked about 3 feet, but today she did very well. So, she may end up not needing rehabilitation. We will kind of re-evaluate tomorrow and see how she does. Disposition again pending her progression with PT. cc: Ron Candelaria MD
[2018-05-20] MEDS: SEROQUEL PO SCH (21:01)
[2018-05-20] MEDS: DULCOLAX PR SCH (21:04)
[2018-05-21] MEDS: SINEMET 25/100 PO SCH ×4 (00:14→21:47)
[2018-05-21] MEDS: ULTRAM PO SCH ×4 (04:51→22:13)
[2018-05-21] MEDS: SYNTHROID PO SCH (06:40)
[2018-05-21] MEDS: PRILOSEC PO SCH (06:40)
[2018-05-21 08:43] LABS: AGAP 12; BUN 6 mg/dL (8-22); CALCIUM 7.7 mg/dL (8.8-10.2); CHLORIDE 105 mmol/L (98-107); COSMO 279; CREATININE 0.4 mg/dL (0.5-0.9); ESTIMATED GFR > 60; GLUCOSE 93 mg/dL (70-104); MAGNESIUM 1.5 mg/dL (1.5-2.7); PHOSPHORUS 2.7 mg/dL (2.7-4.5); POTASSIUM 3.2 mmol/L (3.5-5.1); SODIUM 141 mmol/L (136-145); TCO2 24 mmol/L (25-35)
[2018-05-21] MEDS: NS 1,000 ML IV SCH (08:54)
[2018-05-21] MEDS: CUBICIN 300 MG in NS 100 ML IV SCH (08:55)
[2018-05-21] MEDS: LACTULOSE PO SCH ×2 (09:00→21:47)
[2018-05-21] MEDS: COLACE PO SCH ×3 (09:01→22:13)
[2018-05-21] MEDS: ELIQUIS PO SCH ×2 (09:01→21:47)
[2018-05-21] MEDS: TAMBOCOR PO SCH ×2 (09:01→21:47)
[2018-05-21] MEDS: CELEBREX PO SCH ×2 (09:01→21:47)
[2018-05-21 09:24] LABS: EOS# 0.16 X1000 (0.0-0.7); EOS% 3.7 % (0.0-10.0); HEMATOCRIT 29.8 % (37.0-47.0); HEMOGLOBIN 9.4 g/dL (12.0-16.0); LYMPH# 0.84 X1000 (1.2-3.4); LYMPH% 19.5 % (20.5-51.1); MCH 29.4 PG (27-31); MCHC 31.5 g/dL (33-37); MCV 93.1 FL (81-99); MONO# 0.39 X1000 (0.11-0.59); MPV 11.6 FL (7.4-10.4); NEUT# 2.92 X1000 (1.4-6.5); NEUT% 67.8 % (42.2-75.2); PLT 223 X1000 (130-400); RDW 14.1 % (11.5-14.5); WBC 4.31 X1000 (4.8-10.8)
--- NOTE | 2018-05-21 11:41 | PROGRESS NOTE ---
DATE: 05/21/2018 SUBJECTIVE: The patient is a 73-year-old female who is 3 days status post irrigation and debridement and placement of antibiotic beads for a left total knee arthroplasty per Dr. Beltran. She is currently resting comfortably. She has no complaints this morning. OBJECTIVE: On physical exam of the patient's left knee, her dressing is intact. Her calf is soft. She has active dorsiflexion and plantar flexion. She ambulated much better yesterday with Physical Therapy. Cultures remain negative. IMPRESSION: Postoperative day #3 status post irrigation, debridement, and application of antibiotic beads for left total knee arthroplasty. PLAN: At this point, patient is stable from an orthopedic standpoint. We will continue with IV antibiotics per Dr. Cochran. cc: Joel Rose MD
[2018-05-21] MEDS ORDERED: KLOR-CON PO ONE (12:08)
--- NOTE | 2018-05-21 19:16 | PROGRESS NOTE ---
DATE: 05/21/2018 SUBJECTIVE: Patient has no major complaints. She is looking better every day. OBJECTIVE: Blood pressure 156/64, heart rate of 91, respiratory rate 14, temperature 98.1 degrees.Cardiovascular: Regular rate and rhythm. Pulmonary: Bilateral breath sounds. Clear to auscultation. GI: Was soft, nontender, nondistended. Bowel sounds are positive. LABORATORY DATA: Her white count is 4, hemoglobin and hematocrit 9 and 29, platelets 223,000, potassium is 3.2. PROBLEM LIST: 1. Septic arthritis. History of total knee arthroplasty. She is status post incision and drainage. She is on daptomycin. Peripherally inserted central catheter line is in place. I think Dr. Cochran is planning for IV antibiotics but I am not sure for how long. I think the plan will be to get her home. Her seems willing to do home therapy so Dr. Cochran will have to determine time range on that I am assuming 4 to 6 weeks but at his discretion, but I think from that standpoint she is stable to go home. 2. Parkinsonism. She seems stable. She does not seem like she is having issues on the Seroquel. I think it is helping with her behaviors. 3. Atrial fibrillation is rate controlled. She is on Eliquis. DISPOSITION: I think we will plan to do home IV therapy. I am going to go ahead and order the consult and they will discuss with Dr. Cochran about duration but I am assuming it will be dapto. Hopefully we will get a PT reevaluation tomorrow and decide about other treatment. cc: Ron Candelaria MD
[2018-05-21] MEDS: SEROQUEL PO SCH (21:47)
[2018-05-21] MEDS: DULCOLAX PR SCH ×2 (21:47→22:14)
[2018-05-22] MEDS: NS 1,000 ML IV SCH ×3 (00:19→16:38)
[2018-05-22 05:18] LABS: BASO# 0.01 X1000 (0.0-0.2); BASO% 0.2 % (0.0-0.8); EOS# 0.15 X1000 (0.0-0.7); EOS% 3.5 % (0.0-10.0); HEMOGLOBIN 9.6 g/dL (12.0-16.0); LYMPH# 0.98 X1000 (1.2-3.4); LYMPH% 22.8 % (20.5-51.1); MCH 29.8 PG (27-31); MCV 93.2 FL (81-99); MONO# 0.32 X1000 (0.11-0.59); MONO% 7.5 % (1.7-9.3); MPV 10.9 FL (7.4-10.4); NEUT# 2.83 X1000 (1.4-6.5); PLT 253 X1000 (130-400); RBC 3.22 XMIL (4.2-5.4); RDW 14.2 % (11.5-14.5); WBC 4.29 X1000 (4.8-10.8)
[2018-05-22] MEDS: ULTRAM PO SCH ×3 (05:51→16:39)
[2018-05-22] MEDS: SINEMET 25/100 PO SCH ×2 (05:51→14:01)
[2018-05-22] MEDS: SYNTHROID PO SCH (06:23)
[2018-05-22] MEDS: TYLENOL PO PRN (06:23)
[2018-05-22] MEDS: PRILOSEC PO SCH (06:24)
[2018-05-22] MEDS: TAMBOCOR PO SCH (09:43)
[2018-05-22] MEDS: COLACE PO SCH ×2 (09:44→09:57)
[2018-05-22] MEDS: CELEBREX PO SCH (09:44)
[2018-05-22] MEDS: CUBICIN 300 MG in NS 100 ML IV SCH (09:44)
[2018-05-22] MEDS: ELIQUIS PO SCH ×2 (09:44→09:49)
[2018-05-22] MEDS: LACTULOSE PO SCH (09:45)
[2018-05-22 12:21] VITALS: BP 147/61
--- NOTE | 2018-05-22 14:45 | PROGRESS NOTE ---
DATE: 05/22/2018 SUBJECTIVE: Patient is resting comfortably in bed. Her is at the bedside. The plan is to discuss the case with Dr. Cochran from Infectious Disease Department to see if we can discharge this patient in the next 24 hours with IV treatment. She does not want to go to a rehab center. OBJECTIVE: Vital Signs: Temperature 98.1 degrees, pulse 72, respiratory rate 16, blood pressure 147/61, oxygen saturation 98 on room air. HEENT: Head normocephalic. No trauma. PERRLA. Neck: Supple. No JVD. No masses. Central trachea. Chest: Clear to auscultation. No wheezing. No rales. Abdomen: Soft, nontender, nondistended. No hepatosplenomegaly. Extremities: Her right knee has some hilary. It looks edematous but no signs of infection. No redness. She is able to bend her knee a little bit but she is in pain. Neurological: The patient is alert. She is oriented x2. She is not oriented to time. She is able to recognize family members at the bedside. LABORATORY: WBC 4.2, hemoglobin 9.6, hematocrit 30, platelets 253,000. CK 40. ASSESSMENT AND PLAN: 1. Infected left total knee replacement, status post irrigation and debridement and placement of antibiotic beads and drain, postoperative day #4. This patient seems to be doing good. We will continue with IV antibiotics. Cultures so far negative. Normal white count. Infectious Disease Department on board. 2. Parkinson's disease. She seems to be stable. Neurology Department following this patient. 3. Atrial fibrillation. Continue with same management. Rate controlled. Continue with Eliquis. 4. Hypothyroidism. Continue with Synthroid. cc: Mikhail Brooks MD
--- NOTE | 2018-05-22 15:11 | INFECTIOUS DISEASE PROGRESS NO ---
DATE: 05/22/2018 PRESENT ILLNESS: The patient has an infected left total knee arthroplasty with gram-positive cocci. The organisms were seen on Gram stain, but unfortunately none of them grew. MEDICATIONS: The patient is receiving daptomycin as a single agent. PHYSICAL EXAMINATION: Vital Signs: Temperature is 98.1, pulse 72, respirations 16, blood pressure 147/61. General: This is a somewhat ill-appearing elderly female. She actually seems more alert and in a better humor than she has earlier. Head, Eyes, Ears, Nose and Throat: She can hear my spoken words and see near objects. She does not have any white coating on her tongue. Neck: No pain with movement. Lungs: Clear to auscultation. Cardiovascular: Heart rate is regular. Abdomen: Soft and nontender. Extremities: The patient has a PICC in her left arm. The site is not erythematous or draining. The patient's incision on her left knee is intact. The hilary are still present. There is no erythema, swelling or drainage. Neurologic: The patient is alert. She is more talkative today and in a better sense of humor. She can move her extremities. There is no tremor. LAB AND X-RAY: Final report is that none of the cultures grew. The patient's CBC for today shows a white count of 4290, hemoglobin 9.6 and platelet count 253,000. I have ordered a CK which is still pending. ASSESSMENT AND PLAN: Patient has infected total knee arthroplasty. She is being discharged today or 1st thing in the morning on daptomycin. I have requested the patient to going to my office in 3 weeks and then again at 6 weeks while the patient will be seen and the PICC will be removed. Unfortunately, since we do not have any organism that grew, once I stop the IV antibiotics there will not be anything. I will put her on by mouth on a long-term basis since we do not know the exact name of the organism. COMORBIDITIES: She has osteoarthritis, which is why she had her knee replaced. She also has Parkinson disease. cc: Bharat Cochran MD
--- NOTE | 2018-05-22 17:07 | PROGRESS NOTE ---
DATE: 05/22/2018 SUBJECTIVE: No major overnight events. is at bedside. Both the patient and are hopeful for discharge soon today. OBJECTIVE: Afebrile. Blood pressure 147/61 and pulse 72. Ms Uribe is supine in bed. She has the covers drawn up to her chest and holding onto those with her hands. She is awake and alert. She answers questions appropriately. She follows some simple commands. I did not notice a resting tremor at my time at the bedside. She continued to have reduced facial expression, and somewhat of a low volume voice output. LABORATORY: Reviewed in the chart. ASSESSMENT AND PLAN: Probable idiopathic Parkinson disease. Postural lightheadedness. She is doing reasonably well on the reduced dose of Sinemet 25/100 p.o. t.i.d. I would continue that for now, and that could be readdressed after her acute medical issues are improved. No further suggestions from a neurological perspective. cc: Leni Jameson MD
--- NOTE | 2018-05-23 09:39 | DISCHARGE SUMMARY ---
ADMISSION DATE: 05/15/2018 DISCHARGE DATE: 05/22/2018 DIAGNOSES: 1. Atrial fibrillation RVR, now rate controlled. 2. Infected knee left total knee arthroplasty status post irrigation, debridement, and application of antibiotic beads. 3. Gram-positive cocci infection left total knee. 4. Syncope resolved. 5. Hypertension. 6. Parkinson's disease. 7. Hypothyroid. DIAGNOSTICS: 1. 05/15/2018 Abdominal x-ray revealed mild constipation. 2. 05/15/2018 CT of the head revealed no hemorrhage, mild microvascular ischemic changes. 3. 05/16/2018 Chest x-ray revealed a negative exam. 4. 05/16/2018 Left knee reveals no acute bony injury, good alignment to the femoral and tibial components. No fracture. No dislocation. 5. 05/16/2018 Echocardiogram revealed an ejection fraction of 65% with no regional wall motion abnormalities. Doppler suggests grade 1 left ventricular diastolic dysfunction. CONSULTATIONS: 1. Dr. Bharat Cochran Infectious Disease. 2. Ken Aaron III, MD Neurology. 3. Dr. Beltran Orthopedics. MICROBIOLOGY: 1. Urine culture revealed mixed lamont. 2. Blood cultures x2 revealed no growth after 5 days. 3. Left knee culture originally grew out gram positive cocci, although no organism grew after originally being seen. HOSPITAL COURSE: Ms. Uribe presented to the emergency room after having multiple syncopal episodes. She was found to be in atrial fibrillation with RVR. She was initially suspected to have a sepsis secondary to a urinary tract infection as her urine revealed 20 to 40 white blood cells with 2+ bacteria. Urine culture revealed mixed lamont. She was initially treated with IV Rocephin. She complained of pain to her left knee. She was found to have a left knee effusion with a history of arthroplasty. Orthopedic consult per Dr. Beltran led to an aspiration of the left knee, which initially was found to have gram-positive cocci, although bacteria did not grow out. She then underwent an I and D as well as placement of antibiotic beads and drain to the left knee for which she has done well. She has been up with physical therapy, which she tolerated well. A PICC line was placed. Initially, the patient received IV vancomycin, but as she had problems with ataxia Dr. Cochran discontinued vancomycin and she has since been treated with daptomycin on which she will be discharged. DISCHARGE PHYSICAL EXAMINATION: Vital Signs: Blood pressure is 147/61, heart rate of 72, respirations are 16, and temperature is 98.1 degrees oral with room air saturations 98%. Cardiovascular: Irregularly irregular rate and rhythm. S1 and S2 are appreciated. She has no lower extremity edema. Peripheral pulses are palpable x4 extremities. Calves are nontender. Pulmonary: Breath sounds are clear with no increased work of breathing noted. Chest rises and falls symmetrically with respiration. Chest wall is nontender to palpation Gastrointestinal: Abdomen is soft, nontender, and nondistended with bowel sounds in all 4 quadrants Skin: Warm and dry. She does have a left knee incision that is dry and intact. [place] are clear. Neurologic: She is alert and oriented. DISCHARGE MEDICATIONS: 1. Ultram 100 mg p.o. q.6 hours. 2. Seroquel 12.5 at bedtime. 3. Levothyroxine 50 mcg daily. 4. Lactulose 30 mL p.o. b.i.d. 5. Flecainide 100 mg p.o. b.i.d. 6. Colace 100 mg p.o. b.i.d. 7. Sinemet 25/100 1 q.6h hours. 8. Eliquis 5 mg p.o. b.i.d. 9. Daptomycin 300 mg q. 24 hours. FOLLOW UP: 1. She is to follow up with Dr. Bharat Cochran in 3 weeks. 2. Her primary care provider Dr. Nayana Pryor as needed. 3. Dr. Beltran as instructed. 4. She has been instructed to call to be seen sooner or return to the emergency room for temperature greater than 101, further syncope, dizziness, chest pain, palpitations, shortness of breath, cough, fever, chills, night sweats, any nausea, vomiting, diarrhea, constipation, any frequent bruising, bleeding of gums, any black or bloody vomitus or stool, for any purulent drainage from her left knee, or for any questions or concerns that she may have. 5. She is being discharged home in stable condition with family members. 6. She will be followed by [facility] as well as [facility] for IV antibiotics. TIME SPENT: This is a greater than 30 minute discharge. Dictated by GRAYSON Simmons for Mikhail Brooks MD This chart was documented by, GRAYSON Simmons and accurately reflects the services performed, treatment plan and medical decisions as attested by the providers signature Mikhail Brooks MD. cc: GRAYSON Simmons MD
--- NOTE | 2018-05-24 09:43 | PROVIDER DOCUMENTATION ---
This chart was entered by Kaye Collado Scribe, acting as scribe for Joel Casillas MD. HPI-Abdominal Pain/GI Problem - General Chief Complaint: Syncope Stated Complaint: SYNCOPE Time Seen by Provider: 05/15/18 12:24 Source: patient Allergies/Adverse Reactions: Patient Allergies Allergy/AdvReac Type Severity Reaction Status Date / Time codeine Allergy SHORTNESS Verified 05/15/18 12:55 OF BREATH morphine Allergy SHORTNESS Verified 05/15/18 12:55 OF BREATH Home Medications: Home Medication List Medication Instructions Recorded Confirmed Last Taken Type Carbidopa/Levodopa [Sinemet 25/100] 1 tab PO Q6HR 08/11/17 05/15/18 05/15/18 History Levothyroxine Sodium 50 mcg PO DAILY 08/11/17 05/15/18 05/15/18 History Apixaban [Eliquis] 5 mg PO BID 30 Days #60 tab 08/12/17 05/15/18 05/13/18 Rx Flecainide [Tambocor] 50 mg PO BID #60 tab 08/12/17 05/15/18 05/15/18 Rx Bisacodyl [Dulcolax] 10 mg CA QHS PRN #20 supp 05/22/18 Unknown Rx Docusate Sodium [Colace] 100 mg PO BID cap 05/22/18 Unknown Rx Lactulose 30 ml PO BID #1 udc 05/22/18 Unknown Rx Quetiapine [Seroquel] 12.5 mg PO QHS #20 tab 05/22/18 Unknown Rx Tramadol [Ultram] 100 mg PO Q6H #20 tab 05/22/18 Unknown Rx - History of Present Illness-ABD Nature of Presenting Problems: Patient is a 73 year old female who presents to the ED via EMS with epigastric abdominal pain. Patient states loss of appetite and nausea. Patient states symptoms have been present for 2 weeks. Patient's states taking the pat ient off of her Prilosec because it was not improving the symptoms. Patient states history of Parkinson's disease and A fib. Abdominal Pain Onset Location: reports: epigastric Pain Radiation: reports: no radiation Quality of Pain: reports: aching Severity in ED: reports: mild Onset/Duration: reports: other (2 weeks) Timing: reports: still present Activities at Onset: reports: light activity Modifying Factors: improves with: nothing Associated Symptoms: reports: loss of appetite, nausea Bruising or Bleeding Gums?: No Similar Symptoms Previously?: Yes Recently seen or treated by another doctor?: No Review of Systems - Adult - REVIEW OF SYSTEMS - ADULT Constitutional: reports: no symptoms reported Eyes: reports: no symptoms reported Ears, Nose, Mouth & Throat: reports: no symptoms reported Cardiovascular: reports: no symptoms reported Respiratory: reports: no symptoms reported Gastrointestinal: reports: abdominal pain (epigastric), nausea, poor appetite. denies: diarrhea, vomiting Genitourinary: reports: no symptoms reported Musculoskeletal: reports: no symptoms reported Integumentary: reports: no symptoms reported Neurological: reports: no symptoms reported Psychiatric: reports: no symptoms reported Endocrine: reports: no symptoms reported Hematologic/Lymphatic: reports: no symptoms reported Allergic/Immunologic: reports: no symptoms reported All Other Systems: Reviewed and Negative Past History - Adult - PAST MEDICAL HISTORY-ADULT Review of Records: reports: Nursing Assessment Review, Medications Reviewed, Social history reviewed & non-contributory. Major Childhood Illnesses: reports: denies history Cardiovascular: reports: arrhythmia (but never had been seen before), HTN, hy perlipidemia Respiratory: reports: denies history Gastrointestinal: reports: GERD Obstetrical/Gynecological: reports: denies history Genitourinary: reports: denies history Musculoskeletal: reports: denies history Neurological: reports: Parkinson's Psychiatric: reports: anxiety Endocrine/Immune: reports: thyroid disorder Other Conditions: reports: denies history - PRIOR SURGERIES/PROCEDURES Surgical/Procedure History: reports: appendectomy, hysterectomy, BTL, orthopedic (extremity) (left knee) - IMMUNIZATION STATUS Childhood Immunizations: See Nurse Assessment Flu Vaccine: See Nurse Assessment - FAMILY HISTORY Family History: reviewed, not pertinent - SOCIAL HISTORY Smoking: denies Substance Use: denies Living Situation: family Physical Exam-General - PHYSICAL EXAM-ADULT Initial Vital Signs Reviewed: Yes - CONSTITUTIONAL General Appearance: alert, no apparent distress - EYES Eyes: PERRL/EOMI - HEAD, EARS, NOSE, MOUTH & THROAT HENMT: other (dry mucous membranes) - RESPIRATORY Respiratory: chest non-tender, lungs clear, normal breath sounds - CARDIOVASCULAR Cardiovascular: tachycardia, irregularly irregular - GASTROINTESTINAL (ABDOMEN) Abdominal Exam: normal bowel sounds, soft, tenderness (epigastric) - MUSCULOSKELETAL Extremity: non-tender, normal inspection - SKIN Integumentary: normal turgor, warm/dry, pallor - NEUROLOGIC Neurologic: grossly normal - PSYCHIATRIC Psych/Mental Status: normal mood/affect, oriented x 3 Progress - PLAN OF CARE/RESULTS Progress/Plan/Lab Results: Vital Signs - 8 hr 05/15/18 11:38 Temperature 98.2 F Pulse Rate 116 H Respiratory Rate 18 Blood Pressure 99/58 O2 Sat by Pulse Oximetry 98 Laboratory Results - last 24 hr 05/15/18 11:42 POC Glucose 89 Orders Category Date Time Status BMP [BASIC METABOLIC PANEL] [CHEM] Stat Lab 05/15/18 12:26 Uncollected CBC WITH ELECTRONIC DIFF [HEME] Stat Lab 05/15/18 12:26 Uncollected URINALYSIS W/POSS RFLX CULT [URINALYSIS] Stat Lab 05/15/18 12:26 Uncollected 0.9% Sodium Chloride Inj [Ns] 1,000 ml Med 05/15/18 12:25 Active IV 999 mls/hr Famotidine [Pepcid] Med 05/15/18 12:25 Discontinued 20 mg IV NOW ONE Pantoprazole [Protonix] Med 05/15/18 12:25 Discontinued 40 mg IV NOW ONE Sodium Chloride 0.9% Med 05/15/18 12:26 Discontinued 10 ml INJ NOW ONE Sodium Chloride 0.9% Med 05/15/18 12:26 Discontinued 5 - 10 ml INJ NOW ONE Result Diagrams: 05/22/18 05:08 05/22/18 14:48 - REASSESSMENT Reassessment #1 Time Reassessed: 17:32 Status: improving (SYST 115/ AFTER 1 LITER NS. ABD PAIN RESOLVED 1ST TIME SINCE 2 WEEKS.) Reassessment #2 Time Reassessed: 18:54 Status: improving (SEPSIS WAS IN THE DIFFERENTIAL DIAGNOSES, BUT NL LACTIC ACID AND ANION GAP . PT HAD EPIGASTRIC PAIN X 2 WK WITH VERY POOR FOOD AND FLUID INTAKE, SYNCOPE, SYS 70/,AF W/ RVR OF 140 TODAY. EPIGASTRIC TENDERNESS IS MUCH IMPROVED W/ IV PEPCID, PROTONIC AND GI COCKTAIL. HAS UTI. PROBABLE PUD.) - EKG 1 Time of EKG reading by physician:: 11:48 EKG Read and Signed by:: Joel Casillas EKG Interpretation (*Must complete 3 of following elements*): Abnormal (possible anterior infarct, age undetermined; ST & T wave abnormality, consider lateral ischemia) Rate: 140 Rhythm: atrial fibrillation with rapid ventricular response Comments: inferior infarct, age undetermined; - XRAY 1 XRAY Study: Chest, Abdomen Impression: See EMR Report (EXAM: FLAT/UPRIGHT ABD/1 VIEW CHEST HISTORY: epigastric pain TECHNIQUE: Flat and upright with chest, four views COMPARISON: 08/10/2017 FINDINGS: The lungs are hyperexpanded. There is a calcified granuloma in the mid left lung. No pneumonia. No cardiomegaly. No free air beneath the diaphragm. No bowel obstruction. There is stool throughout the colon. No organomegaly. Moderate degenerative changes in the lower lumbar spine. IMPRESSION: Mild constipation Electronically signed by Khang Griffin 05/15/2018 5:25 PM 05/15/18 1725 Interpreting Physician: Khang Griffin MD Dictated Date/Time: 05/15/18 1724 cc: Joel Casillas MD; Nayana Pryor MD) - CONSULTS/PCP/HOSPITALIST Notification #1 *Consult/PCP/Hospitalist*: GRAYSON Gore for Hospitalist Time Discussed: 17:25 Reason/Comments: Dr. Casillas consulted with Sofía about patient. Needs more lab documented Consult Disposition: other (Sofía states order trop.) #2 Consult: GRAYSON JOYCE , ACCEPTS TO DR FERNANDO Time Discussed: 18:45 Consult Disposition: Admit Departure - Departure Date of Disposition Decision: 05/15/18 Time of Disposition Decision: 18:59 DIAGNOSIS: Atrial fibrillation with rapid ventricular response, UTI (urinary tract infection), PUD (peptic ulcer disease), Syncope, Hypotension Disposition: ADMITTED INPATIENT 09 Certified Medical Emergency: Emergent Condition: Stable - Critical Care Note This patient required my direct & personal management of CC.: Yes Total Time (mins): 30 Critical Care Statement: This patient required my direct personal management to treat or rule out processes, the absence of which, could potentiallly result in sudden, clinically significant life or limb threatening deterioration. Attestation - Physician/ JUNG Attestation The physician spent face to face time with patient:: Yes Advanced Practice Provider documentation review:: Supervising physician onsite and consulted in the evaluation and care of this patient. The physician did have a face to face encounter with the patient. This chart was documented by the indicated scribe, (Kaye Collado, [place]) and accurately reflects the services I performed and decisions made by me, Darin wood,Joel Castillo MD, as attested by the provider's signature.
== END 2018-05-22 17:25 | disposition home health service (06) | DRG 486 ==
LOC: SUPCPDRO → ED 11:32 → 3S 20:29 → SUATTDRO 20:29 → 3S 05-16 23:31 → 3N 05-19 15:46
PROVIDERS: ATTEND Internal Medicine
CPT/HCPCS: 36569; 70450; 71010; 71045; 73562; 74022; 80048; 80053; 81001; 82550; 82565; 82948; 83605; 83735; 84100; 84443; 84484; 85025; 85610; 87040; 87070; 87075; 87088; 87205; 89051; 93005; 93010; 93306; 94761; 94799; 96361; 96365; 96375; 97110; 97162; 97530; 99285; A9270; C9113; J0696; J0878; J1170; J2405; J3010; J3260; J3370; J7030; J7040; J7050; S0028; S0164; XXXXX